=== PATIENT | male | born 1945 | race Caucasian/White ===

== ENCOUNTER 2019-08-27 09:25 | Inpatient (IN) ==
[2019-08-27 10:10] LABS: EOS# 0.12 X1000 (0.0-0.7); EOS% 3.8 % (0.0-10.0); HEMOGLOBIN 11.5 g/dL (14.0-18.0); LYMPH# 0.22 X1000 (1.2-3.4); LYMPH% 6.9 % (20.5-51.1); MCH 28.4 PG (27-31); MCHC 31.1 g/dL (33-37); MCV 91.4 FL (81-99); MONO# 0.18 X1000 (0.11-0.59); MONO% 5.6 % (1.7-9.3); MPV 10.9 FL (7.4-10.4); NEUT# 2.68 X1000 (1.4-6.5); NEUT% 83.7 % (42.2-75.2); PLT 191 X1000 (130-400); RBC 4.05 XMIL (4.7-6.1); RDW 14.3 % (11.5-14.5)
--- NOTE | 2019-08-27 10:11 | Diag Imaging Result Doc PS360 ---
EXAM: CHEST-1 VIEW 08/27/2019 HISTORY: Positive sepsis screen TECHNIQUE: Sitting upright AP chest COMMENT: There is diffuse alveolar and interstitial opacity in the lingula and left lower lobe which were not present on 01/29/2019. There is chronic opacity apparently in the right midlung field which is possibly slightly less dense than on the previous study. IMPRESSION: Left lower lobe and lingular pneumonia. Electronically signed by Marlo Jay 08/27/2019 10:08 AM
[2019-08-27 10:24] LABS: INR 1.25; PROTIME 15.9 Seconds (11.0-16.0)
[2019-08-27 10:25] LABS: PTT 30.1 Seconds (22.3-41.8)
[2019-08-27 10:28] LABS: AGAP 9; ALB/GLOB RATIO 1.1; ALBUMIN 3.2 g/dL (3.5-5.0); ALKALINE PHOSPHATASE 74 U/L (32-122); BUN 15 mg/dL (8-22); CALCIUM 8.6 mg/dL (8.8-10.2); CHLORIDE 92 mmol/L (98-107); CK PROFILE 21 U/L (24-204); COSMO 278; CREATININE 0.5 mg/dL (0.7-1.2); ESTIMATED GFR > 60; GLUCOSE 120 mg/dL (70-104); GOT 24 U/L (10-34); GPT 39 U/L (10-44); POTASSIUM 3.2 mmol/L (3.5-5.1); SODIUM 138 mmol/L (136-145); TCO2 37 mmol/L (25-35); TOTAL BILIRUBIN 1.07 mg/dL (0.20-1.00)
[2019-08-27 10:40] LABS: URINE SOURCE CLEAN CATCH
[2019-08-27 10:45] LABS: BILIRUBIN URINE NEGATIVE (NEGATIVE); BLOOD URINE NEGATIVE (NEGATIVE); COLOR YELLOW; GLUCOSE URINE NEGATIVE (NEGATIVE); KETONE URINE NEGATIVE (NEGATIVE); LEUKOCYTES URINE NEGATIVE (NEGATIVE); NITRITE URINE NEGATIVE (NEGATIVE); PH URINE 7.5; PROTEIN URINE TRACE mg/dL (NEGATIVE); SP GRAVITY URINE 1.015; TURBIDITY URINE CLEAR (CLEAR); UROBILINOGEN URINE NORMAL (NORMAL)
[2019-08-27 10:46] LABS: UR EPITHELIAL CELLS <10 /HPF (<10); URINE BACTERIA NEGATIVE /HPF; URINE RBC <10 /HPF (<10); URINE WBC <10 /HPF (<10)
[2019-08-27] MEDS ORDERED: DUONEB (A & A) INH ONE (11:08)
[2019-08-27] MEDS ORDERED: SOLU-MEDROL IV ONE (11:08)
[2019-08-27] MEDS ORDERED: VANCOMYCIN 1 GM/NS 1 GM/250 ML IVPB IV ONE (11:08)
[2019-08-27] MEDS ORDERED: LEVAQUIN 750 MG/D5W 750 MG/150 ML IVPB IV ONE (11:08)
[2019-08-27] MEDS ORDERED: NS 1,000 ML IV ONE ×2 (11:08→15:06)
--- NOTE | 2019-08-27 11:38 | PROVIDER DOCUMENTATION ---
This chart was entered by eDna Lazaro Scribe, acting as scribe for Art Colbert MD. HPI-Respiratory General - General Chief Complaint: SEPSIS ALERT - D Stated Complaint: SOB,WEAKNESS,CANCER PATIENT Time Seen by Provider: 08/27/19 10:57 Source: patient Allergies/Adverse Reactions: Patient Allergies Allergy/AdvReac Type Severity Reaction Status Date / Time Penicillins Allergy RASH Verified 12/31/18 07:09 - History of Present Illness-Resp Nature of Presenting Problem: 74yom presents to ED cc increased SOB, fatigue, cough w/green mucous and decreased appetite since August 19. Pt reprots he is a pt of Dr. Mauricio and on radiation for lung cancer with last treatment being 1wk ago. Pt does have home o2 of 2lts PRN but has had to use it consistently today. Pt also has home nebulizer treatments which he uses PRN. Pt denies F/C/V/N/D. Quality of Pain: reports: tightness Severity in ED: reports: moderate, severe Onset/Duration: reports: other (9days) Timing: reports: still present, getting worse Cough Quality/Degree: reports: moderate, productive cough, sputum (green) Current Respiratory Medication Therapy: Initiated see nurses note Modifying Factors: worse with: exertion, coughing Associated Symptoms: reports: cough, shortness of breath, short of breath Similar Symptoms Previously?: Yes Recently seen or treated by another doctor?: Yes Review of Systems - Adult - REVIEW OF SYSTEMS - ADULT Constitutional: reports: see HPI, fatique. denies: chills, fever Eyes: reports: no symptoms reported Ears, Nose, Mouth & Throat: reports: no symptoms reported Cardiovascular: reports: no symptoms reported Respiratory: reports: see HPI, cough, excessive sputum production (green), shortness of breath Gastrointestinal: reports: see HPI, poor appetite. denies: diarrhea, nausea, vomiting Genitourinary: reports: no symptoms reported Musculoskeletal: reports: no symptoms reported Integumentary: reports: no symptoms reported Neurological: reports: no symptoms reported Psychiatric: reports: no symptoms reported Endocrine: reports: no symptoms reported Hematologic/Lymphatic: reports: no symptoms reported Allergic/Immunologic: reports: no symptoms reported All Other Systems: Reviewed and Negative Past History - Adult - PAST MEDICAL HISTORY-ADULT Review of Records: reports: Nursing Assessment Review, Medications Reviewed, Social history reviewed & non-contributory. Major Childhood Illnesses: reports: denies history Cardiovascular: reports: denies history Respiratory: reports: denies history Gastrointestinal: reports: denies history Obstetrical/Gynecological: reports: denies history Genitourinary: reports: denies history Musculoskeletal: reports: denies history Neurological: reports: denies history Endocrine/Immune: reports: denies history Other Conditions: reports: denies history - IMMUNIZATION STATUS Childhood Immunizations: See Nurse Assessment Flu Vaccine: See Nurse Assessment - FAMILY HISTORY Family History: reviewed, not pertinent Physical Exam-General - PHYSICAL EXAM-ADULT Initial Vital Signs Reviewed: Yes - CONSTITUTIONAL General Appearance: alert. negative: appears well, anxious, combative - EYES Eyes: pink conjunctivae, other (cataract of left eye) - HEAD, EARS, NOSE, MOUTH & THROAT HENMT: normocephalic/atraumatic, dental decay. negative: moist mucous membranes (dry), angioedema - RESPIRATORY Respiratory: chest non-tender, normal breath sounds, rhonchi (all 4 lobes with left upper worse), other (tachypneic) - CARDIOVASCULAR Cardiovascular: normal peripheral pulses, no murmur, tachycardia. negative: bradycardia - GASTROINTESTINAL (ABDOMEN) Abdominal Exam: normal bowel sounds, non tender, distended. negative: rigid - SKIN Integumentary: normal color. negative: diaphoresis, jaundice - PSYCHIATRIC Psych/Mental Status: normal mood/affect, oriented x 3. negative: anxious, dish eveled Progress - PLAN OF CARE/RESULTS Progress/Plan/Lab Results: Vital Signs - 8 hr 08/27/19 09:36 Temperature 98.0 F Pulse Rate 112 H Respiratory Rate 28 H Blood Pressure 138/68 O2 Sat by Pulse Oximetry 87 L Laboratory Results - last 24 hr 08/27/19 08/27/19 08/27/19 09:50 09:50 09:50 WBC 3.20 L RBC 4.05 L Hgb 11.5 L Hct 37.0 L MCV 91.4 MCH 28.4 MCHC 31.1 L RDW Std Deviation 14.3 Plt Count 191 MPV 10.9 H Immature Gran % (Auto) 0.0 Neut % (Auto) 83.7 H Lymph % (Auto) 6.[address] [place] % (Auto) 5.6 Eos % (Auto) 3.8 Baso % (Auto) 0.0 Immature Gran # (Auto) 0.00 Neut # (Auto) 2.68 Lymph # (Auto) 0.[address] [place] # (Auto) 0.18 Eos # (Auto) 0.12 Baso # (Auto) 0.00 PT 15.9 INR 1.25 PTT (Actin FS) 30.1 Sodium 138 Potassium 3.2 L Chloride 92 L Carbon Dioxide 37 H Anion Gap 9 BUN 15 Creatinine 0.5 L Estimated GFR/1.73 m2 > 60 BUN/Creatinine Ratio 30 Glucose 120 H Calculated Osmolality 278 Calcium 8.6 L Total Bilirubin 1.07 H AST 24 ALT 39 Alkaline Phosphatase 74 Creatine Kinase 21 L Troponin T High Sens Total Protein 6.0 L Albumin 3.2 L Globulin 2.8 Albumin/Globulin Ratio 1.1 Plasma Lactate Urine Source Urine Color Urine Turbidity Urine pH Ur Specific [place] Urine Protein Ur Glucose (Stick) Ur Ketones (Stick) Urine Blood Urine Nitrite Urine Bilirubin Urobilinogen Dipstick Urine Leukocytes Urine WBC (Auto) Urine RBC (Auto) U Epithel Cells (Auto) Urine Bacteria (Auto) 08/27/19 08/27/19 08/27/19 09:50 09:50 10:32 WBC RBC Hgb Hct MCV MCH MCHC RDW Std Deviation Plt Count MPV Immature Gran % (Auto) Neut % (Auto) Lymph % (Auto) [place] % (Auto) Eos % (Auto) Baso % (Auto) Immature Gran # (Auto) Neut # (Auto) Lymph # (Auto) [place] # (Auto) Eos # (Auto) Baso # (Auto) PT INR PTT (Actin FS) Sodium Potassium Chloride Carbon Dioxide Anion Gap BUN Creatinine Estimated GFR/1.73 m2 BUN/Creatinine Ratio Glucose Calculated Osmolality Calcium Total Bilirubin AST ALT Alkaline Phosphatase Creatine Kinase Troponin T High Sens 10 Total Protein Albumin Globulin Albumin/Globulin Ratio Plasma Lactate 2.5 H Urine Source CLEAN CATCH Urine Color YELLOW Urine Turbidity CLEAR Urine pH 7.5 Ur Specific [place] 1.015 Urine Protein TRACE A Ur Glucose (Stick) NEGATIVE Ur Ketones (Stick) NEGATIVE Urine Blood NEGATIVE Urine Nitrite NEGATIVE Urine Bilirubin NEGATIVE Urobilinogen Dipstick NORMAL Urine Leukocytes NEGATIVE Urine WBC (Auto) <10 Urine RBC (Auto) <10 U Epithel Cells (Auto) <10 Urine Bacteria (Auto) NEGATIVE Orders Category Date Time Status Cardiac Monitoring DIRECTED Care 08/27/19 09:41 Active IV Insertion ORDERED Care 08/27/19 09:41 Active Notify MD of + Sepsis Screen NOW Care 08/27/19 09:41 Active Notify Physician As Ordered Care 08/27/19 09:41 Active CHEST-1 VIEW [RAD] Stat Exams 08/27/19 09:41 Completed BLOOD CULTURE [BLDCUL] Stat Lab 08/27/19 09:41 Uncollected CBC WITH DIFF [HEME] Stat Lab 08/27/19 09:50 Completed CK PROFILE [SP CHEM] Stat Lab 08/27/19 09:50 Completed COMPREHENSIVE METABOLIC PANEL [CHEM] Stat Lab 08/27/19 09:50 Completed INFLUENZA SCREEN A/B Stat Lab 08/27/19 11:12 Uncollected LACTATE, PLASMA [CHEM] Q3H Lab 08/27/19 09:50 Completed LACTATE, PLASMA [CHEM] Q3H Lab 08/27/19 12:45 Uncollected LACTATE, PLASMA [CHEM] Q3H Lab 08/27/19 15:45 Uncollected MAGNESIUM [CHEM] Stat Lab 08/27/19 09:50 Received PROTIME WITH INR [COAG] Stat Lab 08/27/19 09:50 Completed PTT [COAG] Stat Lab 08/27/19 09:50 Completed SPUTUM CULTURE WITH GRAM STAIN [RM] Stat Lab 08/27/19 11:12 Uncollected TROPONIN T HIGH SENSITIVITY Stat Lab 08/27/19 09:50 Completed URINALYSIS W/POSS RFLX CULT [URINALYSIS] Stat Lab 08/27/19 10:32 Completed 0.9% Sodium Chloride Inj [Ns] 1,000 ml Med 08/27/19 11:08 Active IV 999 mls/hr Albuterol 2.5MG/Ipratrop 0.5MG [Duoneb (A & A)] Med 08/27/19 11:08 Discontinued 9 ml INH NOW ONE Levofloxacin 750 mg/D5w [Levaquin 750 mg/D5w] Med 08/27/19 11:08 Active 750 mg in 150 ml IV NOW Methylprednisolone Sod Succ [Solu-Medrol] Med 08/27/19 11:08 Discontinued 125 mg IV NOW ONE Vancomycin 1 gm/Ns Med 08/27/19 11:08 Active 1 gm in 250 ml IV NOW Aerosol Treatments Routine Oth 08/27/19 11:09 Active Aerosol Treatments Stat Oth 08/27/19 11:09 Active Oxygen Device Stat Oth 08/27/19 09:41 Active Result Diagrams: 08/27/19 09:50 08/27/19 09:50 - REASSESSMENT Reassessment #1 Time Reassessed: 11:34 Status: improving (Patient has severe sepsis, but not septic shock. Lactate is 2.5, 4 SIRS criteria and pneumonia. Levaquin/Vanco ordered and IVF bolus as soon as patient seen by me. Needs admission. Does not need full 30ml/kg bolus as not in septic shock.) - XRAY 1 XRAY: Bilateral XRAY Study: Chest Impression: See EMR Report (IMPRESSION: Left lower lobe and lingular pneumonia. Electronically signed by Marlo Jay 08/27/2019 10:08 AM) - CONSULTS/PCP/HOSPITALIST Notification #1 *Consult/PCP/Hospitalist*: [email or web address]/[email or web address] Time Discussed: 11:19 Consult Disposition: Admit (accepted pt to Dr. Lopez) Departure - Departure Date of Disposition Decision: 08/27/19 Time of Disposition Decision: 11:18 DIAGNOSIS: Severe sepsis with acute organ dysfunction, History of lung cancer, Hypoxemia Pneumonia Qualifiers: Pneumonia type: due to unspecified organism Laterality: right Lung location: upper lobe of lung Qualified Code(s): J18.1 - Lobar pneumonia, unspecified organism Disposition: ADMITTED INPATIENT 09 Certified Medical Emergency: Emergent Condition: Critical Referrals and Follow-Ups: Frances Bull [Primary Care Provider] - - Critical Care Note This patient required my direct & personal management of CC.: Yes Total Time (mins): 40 Critical Care Statement: This patient required my direct personal management to treat or rule out processes, the absence of which, could potentiallly result in sudden, clinically significant life or limb threatening deterioration. Attestation - Physician/ ZEB Attestation Patient care was provided by Advanced Practice Provider:: No The physician spent face to face time with patient:: Yes Advanced Practice Provider documentation review:: Supervising physician onsite and consulted in the evaluation and care of this patient. The physician did have a face to face encounter with the patient. This chart was documented by the indicated scribe, (Dena Lazaro Scribe) and accurately reflects the services I performed and decisions made by me, Art Colbert MD, as attested by the provider's signature.
[2019-08-27] MEDS ORDERED: VANCOMYCIN IV PER PHARMACY MISC SCH (11:45)
[2019-08-27] MEDS: AZACTAM 1 GM in NS 50 ML IV SCH ×2 (12:32→22:16)
[2019-08-27] MEDS ORDERED: VANCOMYCIN 2,000 MG in NS 500 ML IV ONE (13:00)
[2019-08-27] MEDS ORDERED: XOPENEX NEB INH PRN (14:10)
[2019-08-27] MEDS ORDERED: MORPHINE IV ONE (14:11)
[2019-08-27] MEDS ORDERED: NS NEB INH SCH (14:15)
--- NOTE | 2019-08-27 15:39 | Diag Imaging Result Doc PS360 ---
EXAM: KUB ABDOMEN 08/27/2019 HISTORY: SBO TECHNIQUE: KUB COMMENT: The left side of the abdomen is not included on the film. There is colonic and some small bowel gas in a nonspecific pattern. The stomach is not particularly distended. There is no evidence of organomegaly or mass. IMPRESSION: Possible ileus. Electronically signed by Marlo Jay 08/27/2019 3:37 PM
[2019-08-27] MEDS: SOLU-MEDROL IV SCH ×2 (15:48→22:17)
[2019-08-27 16:00] LABS: BASO# 0.01 X1000 (0.0-0.2); BASO% 0.3 % (0.0-0.8); EOS# 0.02 X1000 (0.0-0.7); EOS% 0.6 % (0.0-10.0); HEMATOCRIT 33.7 % (42.0-52.0); HEMOGLOBIN 10.6 g/dL (14.0-18.0); IMM GRAN# 0.02 X1000 (0.0-0.04); IMM GRAN% 0.6 % (0.0-0.5); LYMPH# 0.13 X1000 (1.2-3.4); LYMPH% 4.2 % (20.5-51.1); MCH 28.6 PG (27-31); MCHC 31.5 g/dL (33-37); MCV 91.1 FL (81-99); MONO# 0.12 X1000 (0.11-0.59); MONO% 3.8 % (1.7-9.3); MPV 10.8 FL (7.4-10.4); NEUT# 2.82 X1000 (1.4-6.5); NEUT% 90.5 % (42.2-75.2); PLT 178 X1000 (130-400); RDW 14.3 % (11.5-14.5); WBC 3.12 X1000 (4.8-10.8)
[2019-08-27] MEDS: DUONEB (A & A) INH SCH ×3 (16:21→23:29)
[2019-08-27 17:06] LABS: LYMPHS 7 % (21-51); MONO 2 % (1-9); SEGS 91 % (42-75)
--- NOTE | 2019-08-27 19:10 | ECHO REPORT ---
ORDER DATE: 08/27/2019 INDICATION: Respiratory distress, respiratory failure, hypoxemia. Evaluate ejection fraction. Suspected CHF. SUMMARY OF 2-DIMENSIONAL IMAGIN. The study is very difficult. Left ventricular function appears to be grossly within normal range. 2. The mitral valve appears to be grossly unremarkable. 3. Pulse wave Doppler of mitral inflow shows mild reversal of the E/A ratio. 4. Tissue Doppler of septal and lateral mitral annulus averages 7 cm. 5. Diastolic function is probably normal. 6. The aortic valve looks grossly unremarkable. The LVOT VTI appears to be normal. Cardiac output is probably normal. 7. I do not see any evidence of pericardial effusion. 8. The left atrium does not appear to be dilated. 9. The right-sided chambers are suboptimally visualized. 10.There is no obvious mass in the left ventricle. Clinical correlation recommended. This was a limited echo. cc: Jose Kathleen MD MTDD
--- NOTE | 2019-08-27 19:56 | HISTORY AND PHYSICAL ---
ADDENDUM: HISTORY OF PRESENT ILLNESS: I have seen and examined Mr. Alfredo in the emergency room. He is pending a bed on the medical floor. The was at the bedside at the time of the encounter. Mr. Alfredo refers to have generalized weakness, cough, some shortness of breath for a few days now, which has been progressively getting worse. He came to the emergency room and was evaluated. Imaging studies reveal a left lower lobe pneumonia and he is being admitted for inpatient management. Of note, Mr. 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 He has been having chemotherapy with Dr. Mai and had just started this week with radiation therapy. OBJECTIVE: General: Mr. Alfredo is a 74-year-old, gentleman. He looks underweight, chronically ill. HEENT: Mucosa is pink and moist. Anicteric, acyanotic. Neck: Supple. Chest: Air entry is bilaterally reduced, more so to the right posterior lung field. There are diffuse and inspiratory crackles in both lung mayfield. Cardiovascular: Regular rate and rhythm. Abdomen: Soft and somewhat distended. Bowel sounds present. Central nervous system: Patient is awake, alert, and oriented. LABORATORY AND DIAGNOSTIC DATA: Laboratory data has also been reviewed. The patient has leukopenia. Chemistry for the most part unremarkable, except for mild low potassium. A chest x- ray this morning shows left lower lobe and lingular pneumonia, chronic opacity in the right mid lung which is possibly slightly less dense than previous studies. ASSESSMENT/PLAN: 1. Acute on chronic hypoxemic respiratory failure. Patient has been started back on supplemental oxygen. 2. Sepsis secondary to pneumonia. 3. Left lower lobe and lingula pneumonia in patient who is immunocompromised. He is allergic to penicillin, so he has been started on aztreonam with vancomycin. We will get sputum cultures, blood cultures. We will also get his immunoglobulin levels and go from there. 4. Chronic obstructive pulmonary disease, in exacerbation. 5. Tobacco use and abuse. Patient has been counseled. 6. Recently diagnosed left lung squamous cell cancer. Patient follows up with Dr. Mai. Please refer to the details of the history and physical that has been dictated by the [employer] PRE[employer]ION SPECIALIST in the chart. I have reviewed it and I have also discussed the plan with her. I have discussed my findings and the plan with the patient, as well as the who was at the bedside. cc: Leonard Lim MD
--- NOTE | 2019-08-27 21:34 | HISTORY AND PHYSICAL ---
PRIMARY CARE PROVIDER: Nany Womack. ONCOLOGIST: Dr. Mai. CHIEF COMPLAINT: Shortness of breath, weakness. HISTORY OF PRESENT ILLNESS: Mr. Alfredo is a 74-year-old male with a past medical history of lung cancer. He has been receiving treatments with chemo since last December. His last chemo treatment was on Saturday. He has been getting radiation treatments Saturday through Saturday. His last radiation treatment was yesterday. He reports he has had a productive cough with greenish sputum. He went to see his PCP on Saturday. They did give him a prescription for Levaquin, but he has had continuing worsening of his shortness of breath, so he came to the ED to be evaluated. His initial lactate was positive. He was tachycardic, tachypneic, and hypoxic on arrival. He was initiated on the sepsis protocol and started on broad-spectrum antibiotics with vancomycin and Azactam, bronchodilators, and supplemental O2. We will consult Dr. Mai and continue with further treatment and evaluation. PAST MEDICAL HISTORY: 1. Right lung mass; been on chemotherapy since last December; just started radiation 5 days a week. 2. COPD. 3. Really denies any other past medical history. PAST SURGICAL HISTORY: Right thigh surgery secondary to trauma as a child. SOCIAL HISTORY: He is and lives in [place]. He was a smoker for 59 years, 2 packs per day. He quit smoking 6 years ago. He is on home O2. FAMILY HISTORY: Mother with [place] at the age of 86. Father with lung cancer. Two sisters with diabetes. REVIEW OF SYSTEMS: Twelve-point review of systems completely negative except for those mentioned in HPI. PHYSICAL EXAMINATION: VITAL SIGNS: Temperature 98 degrees, heart rate 112, respirations 28, blood pressure is 138/68. Initial O2 was 87. He is now in 90s on 2 L. GENERAL: Mr. Alfredo is a pleasant 74-year-old male who is sitting up in the bed in no acute distress. HEENT: Atraumatic, normocephalic. PERRL. NECK: Supple. Trachea midline. CARDIOVASCULAR: S1, S2 appreciated. No murmurs, gallops, rubs noted. RESPIRATORY: Lung sounds scattered rhonchi. Did not appreciate any wheezes. GI: Distended, but nontender. Positive bowel sounds 4 quadrants. EXTREMITIES: Lower extremities 1+ edema. There was some erythema. NEUROLOGIC: No focal deficits noted. DIAGNOSTIC DATA: Chest x-ray showed a left lower lobe and lingular pneumonia. Abdominal x-ray: Possible ileus. LABORATORY DATA: White count 3, hemoglobin and hematocrit 10 and 33, platelet count 178,000. Sodium 138, potassium 3.2, BUN 15, creatinine 0.5, blood glucose is 120, magnesium 1.9, total bilirubin 1.07, AST 24, ALT 39, alkaline phosphatase 74. ProBNP is 227. Initial plasma lactate was 2.5. Repeat is 2.1. Urinalysis is negative. ASSESSMENT AND PLAN: 1. Left lower lobe and lingular pneumonia. The patient ruled in for sepsis. We will continue broad-spectrum antibiotics with vancomycin and Azactam. He has an allergy to penicillin. Supplemental oxygen, bronchodilators, and aggressive pulmonary toilet. 2. Sepsis rule in. Patient was given intravenous fluids per protocol. Continue to trend his lactate. 3. Possible ileus. We will hold him n.p.o. for now. His abdomen was distended; however, he does report having a good bowel movement yesterday. He did have bowel sounds. 4. Bilateral lower extremity edema. His proBNP is normal at 8. We are checking an echocardiogram. We can continue his home Lasix. Will keep his feet elevated. 5. Lung cancer. The patient is currently receiving chemotherapy and radiation, followed by Dr. Mai. We placed a consult. We will continue him on his home MS Contin. 6. Chronic obstructive pulmonary disease. We will continue on bronchodilators, supplemental oxygen, intravenous steroids. Dictated by PANDA Real for Leonard Lim MD cc: MD Solitario Williamson MD Gini M. Montgomery
[2019-08-27] MEDS: MS CONTIN PO SCH (22:17)
[2019-08-27] MEDS: MIRALAX PO SCH (22:17)
[2019-08-27] MEDS: NS 1,000 ML IV SCH (22:17)
[2019-08-27] MEDS: XOPENEX NEB INH SCH (23:25)
[2019-08-28] MEDS: SOLU-MEDROL IV SCH ×4 (03:12→23:39)
[2019-08-28] MEDS ORDERED: NORCO-10 PO ONE (04:02)
[2019-08-28] MEDS: NS 1,000 ML IV SCH (04:04)
[2019-08-28] MEDS: AZACTAM 1 GM in NS 50 ML IV SCH ×3 (04:09→21:18)
[2019-08-28] MEDS: DUONEB (A & A) INH SCH ×6 (05:46→22:37)
[2019-08-28] MEDS: VANCOMYCIN 1,600 MG in NS 250 ML IV SCH (06:47)
--- NOTE | 2019-08-28 07:21 | Diag Imaging Result Doc PS360 ---
EXAM: CHEST-PORTABLE 08/28/2019 HISTORY: Pneumonia TECHNIQUE: AP portable at 0605 COMMENT: The inspiration is slightly less optimal than on 08/27/2019. The patient is rotated slightly to the right. There continues to be dense opacification in the left lower lobe. There are postsurgical deformities in the right chest wall and some ill-defined opacities present in the mid and lower lung field on the right. IMPRESSION: Left lower lobe pneumonia. Electronically signed by Marlo Jay 08/28/2019 7:18 AM
[2019-08-28] MEDS: XOPENEX NEB INH SCH (08:42)
[2019-08-28] MEDS: MIRALAX PO SCH (09:52)
[2019-08-28] MEDS: MS CONTIN PO SCH ×2 (09:52→21:18)
[2019-08-28] MEDS: TYLENOL PO PRN (14:49)
--- NOTE | 2019-08-28 16:03 | PROGRESS NOTE ---
DATE: 08/28/2019 SUBJECTIVE: This morning Mr. Alfredo refers to be doing a little better. Shortness of breath has improved some. OBJECTIVELY: Blood pressure is 132/56, pulse of 87, respiration is 18, temperature 97.8 degrees. The patient is saturating 93% on 3 L.General: On general exam, Mr. Alfredo is a 74-year-old, gentleman. He is in bed, in no distress. HEENT: Mucosa is pink and moist. Anicteric. Acyanotic. Neck: Supple. Respiratory: Air entry is bilaterally reduced, more so to the right posterior lung field. There are some crackles posteriorly in both lung mayfield. Cardiovascular: Regular rate and rhythm. GI: Abdomen is soft, is distended. Bowel sounds slightly hypoactive. Extremities: No pedal edema. DEPARTMENT CHAIRPERSON: Patient is awake, alert, oriented. LABORATORY DATA: None for this morning. A KUB yesterday showed possible ileus. A chest x-ray this morning shows left lower lobe pneumonia. ASSESSMENT: 1. Acute on chronic hypoxemic respiratory failure. Patient continues to be on supplemental oxygen. 2. Sepsis secondary to pneumonia. 3. Left lower lobe and lingular pneumonia. The patient is on aztreonam and vancomycin. Cultures are pending. 4. COPD, in mild exacerbation. 5. Tobacco use and abuse. Patient has been counseled. 6. Recently diagnosed right upper lobe squamous cell carcinoma with infiltration to the skin. Patient follows up with Dr. Mai. 7. Ileus with constipation. We will continue to address this with bowel regimen. 8. Generalized weakness and deconditioning. Physical therapy has been consulted and will start the patient also on diet supplements. cc: Leonard Lim MD
--- NOTE | 2019-08-28 16:06 | Diag Imaging Result Doc PS360 ---
EXAM: CT THORAX/ABDOMEN W/CONTRAST INDICATION: R/o progression of cancer TECHNIQUE: This exam was performed using automated exposure control, adjustment of mA or kV according to patient size, and/or use of iterative reconstruction technique. COMPARISON: 07/28/2019 FINDINGS: CHEST: There is pulmonary emphysema with an apical predominance. There is a known right middle lobe lung mass that is invading and extending through the anterior chest wall. The intrathoracic portion of the mass is approximately stable. However, the extrathoracic portion of the mass has increased in size. For reference, one of the extrathoracic extensions of the mass on image 59 of series 7 measures up to 5.4 x 5.2 cm axially (4.7 x 3.5 cm previously, remeasured). There is also a chest wall mass anteriorly on 83 of series 7 measuring 5.2 x 4.1 cm axially (4.4 x 3.7 cm previously, remeasured). There has been interval development of a dense airspace consolidation involving the left lower lobe indicating pneumonia. There is milder consolidation at the right lung base as well. There is also a component of atelectasis at both lung bases. Rib erosion on the right related to the mass is again noted. ABDOMEN: The gallbladder is partially contracted and is unremarkable, otherwise. The liver is unremarkable with no sign of metastatic disease. The spleen, pancreas, and adrenal glands are grossly unremarkable. There is bilateral renal cortical scarring, more prominent at the inferior right kidney. There is an extrarenal pelvis on the right that is more distended than the previous study. It is unclear if this is due to a distal obstruction out of the [id number] or simply due to increased urine output as compared to the previous study. The distal ureter is out of the [id number]. Please correlate clinically. There is extensive uncomplicated colonic diverticulosis. There are nonspecific fluid and gas-filled loops of small bowel with only mild distention likely representing mild ileus there is nothing specific for obstruction. Otherwise, the visualized abdominal segments of the GI tract are grossly unremarkable. IMPRESSION: 1.Known right middle lobe lung mass invading the anterior right chest wall. The extrathoracic components of the mass have increased in size during the interval. 2.Interval development of pneumonia at both lower lobes, much more prominent on the left. 3.Dilated extrarenal pelvis on the right that is more prominent than the previous study. Please see above discussion. 4.Several gas and fluid-filled loops of small bowel in the upper abdomen with mild distention that are nonspecific but probably represent mild ileus. 5.Otherwise, the abdomen is essentially stable. Electronically signed by Esau Mitchell 08/28/2019 4:04 PM
[2019-08-28] MEDS: NORCO-10 PO PRN (18:42)
[2019-08-28] MEDS ORDERED: MS CONTIN PO SCH (21:00)
[2019-08-29] MEDS: VANCOMYCIN 1,600 MG in NS 250 ML IV SCH (00:15)
[2019-08-29] MEDS: DUONEB (A & A) INH SCH ×6 (03:22→22:46)
[2019-08-29] MEDS: AZACTAM 1 GM in NS 50 ML IV SCH ×3 (04:30→21:00)
[2019-08-29 07:54] LABS: BASO# 0.01 X1000 (0.0-0.2); BASO% 0.4 % (0.0-0.8); EOS# 0.01 X1000 (0.0-0.7); EOS% 0.4 % (0.0-10.0); HEMATOCRIT 34.2 % (42.0-52.0); HEMOGLOBIN 10.2 g/dL (14.0-18.0); IMM GRAN# 0.02 X1000 (0.0-0.04); IMM GRAN% 0.8 % (0.0-0.5); LYMPH# 0.22 X1000 (1.2-3.4); LYMPH% 8.5 % (20.5-51.1); MCH 28.9 PG (27-31); MCHC 29.8 g/dL (33-37); MCV 96.9 FL (81-99); MONO# 0.33 X1000 (0.11-0.59); MONO% 12.7 % (1.7-9.3); MPV 10.8 FL (7.4-10.4); NEUT# 2.01 X1000 (1.4-6.5); NEUT% 77.2 % (42.2-75.2); PLT 208 X1000 (130-400); RBC 3.53 XMIL (4.7-6.1); RDW 14.6 % (11.5-14.5)
[2019-08-29] MEDS: SOLU-MEDROL IV SCH ×3 (08:08→22:32)
[2019-08-29] MEDS: MIRALAX PO SCH (08:08)
[2019-08-29] MEDS: MS CONTIN PO SCH ×2 (08:09→21:04)
[2019-08-29 08:36] LABS: AGAP 7; ALB/GLOB RATIO 0.9; ALBUMIN 2.8 g/dL (3.5-5.0); ALKALINE PHOSPHATASE 55 U/L (32-122); BUN 19 mg/dL (8-22); CALCIUM 8.2 mg/dL (8.8-10.2); CHLORIDE 102 mmol/L (98-107); COSMO 289; CREATININE 0.4 mg/dL (0.7-1.2); ESTIMATED GFR > 60; GLUCOSE 126 mg/dL (70-104); GOT 12 U/L (10-34); GPT 27 U/L (10-44); POTASSIUM 4.1 mmol/L (3.5-5.1); SODIUM 143 mmol/L (136-145); TCO2 34 mmol/L (25-35); TOTAL BILIRUBIN 0.33 mg/dL (0.20-1.00); TOTAL PROTEIN 5.9 g/dL (6.3-8.3)
[2019-08-29] MEDS: NORCO-10 PO PRN ×4 (09:11→23:09)
[2019-08-29] MEDS ORDERED: FLEET ENEMA PR ONE (11:49)
--- NOTE | 2019-08-29 11:49 | Diag Imaging Result Doc PS360 ---
EXAM: CT PELVIS W/O CONTRAST INDICATION: right hydroureteronephrosis TECHNIQUE: This exam was performed using automated exposure control, adjustment of mA or kV according to patient size, and/or use of iterative reconstruction technique. COMPARISON: CT of the abdomen dated 08/28/2019. No prior CT of the pelvis is available for comparison. FINDINGS: There is contrast media in the urinary bladder from the CT of the chest and abdomen performed yesterday. The urinary bladder is markedly distended. No bladder wall thickening or bladder mass can be identified. The prostate is mildly enlarged measuring up to 5.2 cm in diameter. There are prostatic calcifications. The distal right ureter is mildly prominent. Note that the right renal pelvis was prominent on yesterday's study. The distal left ureter is unremarkable. There is extensive sigmoid colonic diverticulosis but no evidence of diverticulitis. The appendix is normal. No bowel wall thickening is identified. No focal inflammatory changes or free abdominal gas is appreciated in the pelvis. There is no evidence of pelvic lymphadenopathy. There are degenerative changes involving the lower lumbar spine. IMPRESSION: 1.Significantly distended urinary bladder and mildly prominent distal right ureter. 2.Mildly prominent prostate. 3.Uncomplicated diverticulosis coli. Electronically signed by Esau Mitchell 08/29/2019 11:46 AM
[2019-08-29] MEDS: MILK OF MAGNESIA PO SCH ×2 (12:21→21:07)
[2019-08-29] MEDS: TYLENOL PO PRN (14:34)
--- NOTE | 2019-08-29 14:48 | PROGRESS NOTE ---
DATE: 08/29/2019 SUBJECTIVE: This morning Mr. Alfredo refers to be doing a lot better from respiration standpoint, but he said he has some abdominal discomfort, especially in the lower abdomen. OBJECTIVE: Vital signs: Blood pressure is 131/58, pulse of 60, respirations 18, temperature is 97.8 degrees. General: Mr. Alfredo is a 74-year-old elderly gentleman. He is in bed no distress. HEENT: Mucosa is pink and moist. Anicteric. Acyanotic. Neck: Supple. Chest: Good air entry bilateral. There is a few crackles in the posterior lung [place]. Cardiovascular: Regular rate and rhythm. No murmurs, no rubs, no gallops. GI: Abdomen soft, distended, mildly tender in the lower abdomen but no guarding and no rebound. Bowel sounds are present but remarkably hypoactive. Extremities: No pedal edema. STOCK FEEDER: Patient is awake, alert, and follows commands. LABORATORY DATA: WBC [place] 2.6[place] [address].0, platelet count of 208,000. Chemistry is also reviewed, is unremarkable. DIAGNOSTIC STUDIES: 1. A CT scan of the abdomen and pelvis yesterday showed known right middle lobe lung mass invading the anterior chest wall. There is also interval development of pneumonia both lower bases. There was a dilated extrarenal pelvis in the right but several gas and fluid-filled loops of small bowel. 2. Pelvis scan this morning seems to show that the patient has a dilated bladder and continues to be remarkably stool impacted. 3. We are still waiting on the official report on that. 4. The patient's blood cultures have been 48 hours negative. ASSESSMENT: 1. Acute on chronic hypoxemic respiratory failure. Patient continues to be on supplemental oxygen. 2. Sepsis on presentation secondary to pneumonia improved. 3. Multifocal bilateral lower lobe pneumonias, the left more than right. Patient is on aztreonam and vancomycin. He seems to be clinically getting better. 4. Chronic obstructive pulmonary disease in exacerbation. We will continue with standard of care. 5. Tobacco use and abuse patient has been counseled. 6. 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 7. Constipation with impaction. We will continue addressing this with bowel regimen. Patient will get will get a Fleet enema today. 8. Urinary retention. A CT scan shows a dilated bladder. We are going to get a Campbell catheter. There is also mention of a right hydroureter. Urology has been consulted. We will sample the urine once the catheter is inserted. cc: Leonard Lim MD
[2019-08-29] MEDS ORDERED: VANCOMYCIN 1,600 MG in NS 250 ML IV SCH (21:00)
[2019-08-29] MEDS: FLOMAX PO SCH (21:06)
--- NOTE | 2019-08-30 00:13 | CONSULTATION ---
DATE OF CONSULTATION: 08/29/2019 CONSULTING PHYSICIAN: Dr. Lim with Hospitalist Service. REASON FOR CONSULTATION: Right hydronephrosis. HISTORY OF PRESENT ILLNESS: A 74-year-old male with a significant history of advanced lung cancer, who has been getting chemotherapy and radiation. He presented with shortness of breath and weakness on 08/27/2019, and was admitted. In the process, he had CT of chest and abdomen on 08/28/2018, which showed right hydronephrosis with dilated ureter that was limited by not having the CT scan performed to the level of the pelvis. The patient states he has intermittent right flank pain. He states that prior to hospitalization, his stream was somewhat weak. He had hesitancy. He had nocturia x3. He denies dysuria, gross hematuria, history of urinary tract infections. He reports he has never had a prostate exam. He thinks Dr. Bull, his family doctor, follows his PSAs. He had a CT of pelvis without contrast on 08/29/2019, ordered by me, which revealed dilated ureter to the level of the bladder and significantly distended urinary bladder as well as enlarged prostate. PAST MEDICAL HISTORY: Lung cancer, COPD. PAST SURGICAL HISTORY: Thigh surgery. ALLERGIES: Penicillins. HOME MEDICATIONS: Dexamethasone, eszopiclone, Levaquin, MS Contin, [place] 10, furosemide. SOCIAL HISTORY: He had smoked for almost 60 years, 2 packs a day. Quit smoking 6 years ago. He has home oxygen. FAMILY HISTORY: Negative for malignancies. REVIEW OF SYSTEMS: Reviewed and 12 systems negative, except for the HPI. PHYSICAL EXAMINATION: Temperature 97.8 degrees, P 68, BP 131/58.General: No acute distress. Cachectic-appearing male. HEENT: Normocephalic, atraumatic. Cardiovascular: Regular rhythm. Pulmonary: Bilateral breath sounds. Abdomen: Soft, nontender, nondistended. Back: Mild right CVA tenderness, no left CVA tenderness. No hepatosplenomegaly noted. Active bowel sounds present. Genitourinary: Normal external male genitalia. Meatus is patent. Testes are descended bilaterally, atrophic, but appropriate for age. No masses palpable. Scrotal skin is without lesions. Perineum has intact structural integrity. No lesions or fluctuance noted. Digital examination revealed approximately 40.5 g gland without evidence of nodules. It was smooth and symmetric. Extremities: No clubbing, cyanosis, or edema. Psychiatric: Appropriate mood and affect. Neurologic: Alert and oriented x3. PERTINENT LABORATORY DATA: White cell count is 3000, hematocrit is 34. Creatinine is 0.4. PERTINENT IMAGES: CT of pelvis on 08/29/2019, revealing a very distended urinary bladder and hydroureteronephrosis to the level of the bladder. He had fairly enlarged prostate. ASSESSMENT: A 74-year-old male with advanced lung cancer, who had incidental finding of a right hydroureteronephrosis to the level of bladder and very distended bladder. Hospitalist colleagues have already ordered Campbell catheter be placed. I have discussed with the patient, he likely has significant prostatic hypertrophy which has put him into retention. We discussed Flomax versus GreenLight transurethral vaporization of the prostate. We agreed to try Flomax first. Side effects were explained. We discussed his Campbell catheter should be able to come out in 2 days. PLAN: 1. Agree with Campbell catheter insertion. 2. Flomax 0.4 mg bid. 3. Recommend removing Campbell catheter at the earliest on 09/01/2019, and see how he voids. 4. Thank you for the consultation. cc: Alcon Randall MD MTDJennie
[2019-08-30] MEDS: DUONEB (A & A) INH PRN ×2 (02:21→02:38)
[2019-08-30] MEDS: DUONEB (A & A) INH SCH ×3 (02:22→07:14)
[2019-08-30] MEDS: AZACTAM 1 GM in NS 50 ML IV SCH (04:40)
[2019-08-30] MEDS: NORCO-10 PO PRN (05:24)
[2019-08-30 07:36] LABS: HEMATOCRIT 33.6 % (42.0-52.0); HEMOGLOBIN 9.9 g/dL (14.0-18.0); MCH 28.5 PG (27-31); MCHC 29.5 g/dL (33-37); MCV 96.8 FL (81-99); MPV 10.9 FL (7.4-10.4); RBC 3.47 XMIL (4.7-6.1); RDW 14.1 % (11.5-14.5); WBC 2.28 X1000 (4.8-10.8)
[2019-08-30 08:06] LABS: AGAP 4; ALBUMIN 2.7 g/dL (3.5-5.0); ALKALINE PHOSPHATASE 49 U/L (32-122); BUN 18 mg/dL (8-22); CALCIUM 8.6 mg/dL (8.8-10.2); CHLORIDE 99 mmol/L (98-107); COSMO 281; CREATININE 0.4 mg/dL (0.7-1.2); ESTIMATED GFR > 60; GLUCOSE 123 mg/dL (70-104); GOT 10 U/L (10-34); GPT 25 U/L (10-44); MAGNESIUM 2.8 mg/dL (1.5-2.7); POTASSIUM 4.3 mmol/L (3.5-5.1); SODIUM 139 mmol/L (136-145); TCO2 36 mmol/L (25-35); TOTAL BILIRUBIN 0.35 mg/dL (0.20-1.00); TOTAL PROTEIN 5.4 g/dL (6.3-8.3)
[2019-08-30 08:11] VITALS: BP 127/61
[2019-08-30] MEDS: MS CONTIN PO SCH (09:13)
[2019-08-30] MEDS: FLOMAX PO SCH (09:13)
[2019-08-30] MEDS: MIRALAX PO SCH (09:14)
[2019-08-30] MEDS: SOLU-MEDROL IV SCH (09:14)
[2019-08-30] MEDS: MILK OF MAGNESIA PO SCH (09:14)
--- NOTE | 2019-08-30 20:54 | DISCHARGE SUMMARY ---
ADMISSION DATE: 08/27/2019 DISCHARGE DATE: 08/30/2019 DISPOSITION: Home. FOLLOW-UP: Dr. Frances Bull. Dr. Mai. Dr. Randall. CONSULTATION DURING THIS ADMISSION: Urology was consulted. Patient was seen by Dr. Randall. INVASIVE PROCEDURES DONE DURING THIS ADMISSION: 1. None. IMAGING STUDIES OF SIGNIFICANCE: 1. Chest x-ray did show a left lower lobe and lingular pneumonia. 2. Abdomen KUB showed possible ileus. 3. A repeat chest x-ray continued to show a left lower lobe pneumonia. 4. A CT scan of the chest and abdomen showed known right middle lobe mass, interval development of pneumonia in both lungs, dilated extrarenal pelvis. Several gas filled loops of small bowel. The pelvic CT scan show significantly distended urinary bladder, mildly prominent prostate, uncomplicated diverticulosis. ADMISSION DIAGNOSIS: 1. Acute on chronic hypoxemic respiratory failure. 2. Sepsis. 3. Left lower lobe and lingular pneumonia. 4. COPD in exacerbation. 5. Tobacco use and abuse. 6. Recent diagnosis of left lung squamous cell cancer. DISCHARGE DIAGNOSIS: 1. Acute on chronic hypoxemic respiratory failure. Patient continues to be on supplemental oxygen. 2. Sepsis on presentation secondary to pneumonia. 3. Multifocal bilateral lower lobes pneumonia, left more than the right. The patient was on aztreonam and vancomycin. Seems to be clinically getting better. This has been transitioned to Levaquin and doxycycline for outpatient management. 4. COPD with bronchospasms. The patient was treated for possible exacerbation as well. 5. Tobacco use and abuse. 6. 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 7. Constipation with fecal impaction and improved with bowel regimen. 8. Urinary retention. This has been overcome with Campbell catheter placement. Urology was consulted. DISCHARGE MEDICATIONS: 1. Dexamethasone 4 mg b.i.d. 2. Morphine 50 mg b.i.d. 3. [place] 10 mg p.o. q. 4 to 6 hours p.r.n. 4. Ibuprofen 600 mg p.o. q. 6 h. p.r.n. 5. Anoro inhaler. 6. Doxycycline 100 mg b.i.d. 7. Tamsulosin 0.4 b.i.d. 8. Milk of magnesia 30 mL b.i.d. 9. Movantik 12.5 p.o. daily. 10. Peace-Colace 1 tab b.i.d. 11. Levaquin 500 p.o. daily. PRESENTING COMPLAINT: Shortness of breath. HISTORY OF PRESENT COMPLAINT: Mr. Alfredo is a 74-year-old male who is known to have COPD, recently diagnosed with a right upper lobe squamous cell cancer. She sees Dr. Mai, came to the emergency room because of progressively worsening shortness of breath. On presentation, Mr. Alfredo was evaluated and was found to have a left lower lobe infiltrate. He was admitted for possible pneumonia. He did continue to improve during the hospital course. A CAT scan of the chest and abdomen did show multifocal pneumonia and some other findings in the abdomen. Please refer to the details of the report in the chart. Mr. Alfredo was also found to be urinary obstructed, so a Campbell catheter was inserted. Clinically Mr. Alfredo continued to feel better. This morning, he said his shortness of breath has significantly improved and he feels stronger. He is very adamant that he is going to be discharged. He said he has a lot of things to take care of at home and that if we do not discharge him, he was still going to sign himself against medical advice. Despite the persuasion to let him know that he still has a lot of pneumonia, he said he feels much better and that he would go. I think it is reasonable to send him home on antibiotics. A prescription done for him to go against medical advice and come back sicker than he has been. I have therefore written up a script for Levaquin and doxycycline as well as tamsulosin for his BPH and urinary retention. He was evaluated during the hospital course by Dr. Randall who recommended the tamsulosin. He also discussed with him the possibility of doing cystoscopy. However, the patient chose conservative medical management. Mr. Alfredo is going home with a Campbell catheter. He has been advised to follow up with Dr. Randall within one week to assess the need for the catheter to be removed or continuous need. Mr. Alfredo will also follow up with Dr. Mai as well as with his primary care doctor, Frances Bull. All the discharge instructions were discussed with him and with his at the bedside at the time of the encounter. Both of them voiced understanding. Time spent for discharge is 38 minutes. cc: Leonard Lim MD [facility]
== END 2019-08-30 10:23 | disposition home or self-care (01) | DRG 871 ==
LOC: ED 09:25 → EDIPHOLD 11:46 → 3N 19:52
PROVIDERS: ATTEND Internal Medicine

== ENCOUNTER 2019-10-07 09:52 | Inpatient (IN) ==
[2019-10-07 10:34] LABS: EOS# 0.09 X1000 (0.0-0.7); EOS% 5.4 % (0.0-10.0); HEMATOCRIT 32.1 % (42.0-52.0); HEMOGLOBIN 10.2 g/dL (14.0-18.0); LYMPH# 0.24 X1000 (1.2-3.4); LYMPH% 14.5 % (20.5-51.1); MCH 31.3 PG (27-31); MCHC 31.8 g/dL (33-37); MCV 98.5 FL (81-99); MONO# 0.23 X1000 (0.11-0.59); MONO% 13.9 % (1.7-9.3); MPV 10.1 FL (7.4-10.4); NEUT% 66.2 % (42.2-75.2); PLT 108 X1000 (130-400); RBC 3.26 XMIL (4.7-6.1); RDW 17.4 % (11.5-14.5); WBC 1.66 X1000 (4.8-10.8)
--- NOTE | 2019-10-07 10:35 | EKG Report ---
Test Performed on : 10/07/2019 10:04:01 AM Test Reason : weakness Blood Pressure : / mmHG Vent. Rate : 116 BPM Atrial Rate : 116 BPM P-R Int : 144 ms QRS Dur : 076 ms QT Int : 310 ms P-R-T Axes : 051 045 060 degrees QTc Int : 430 ms Sinus tachycardia. Otherwise normal ECG When compared with ECG of 22-JAN-2019 16:26, Nonspecific T wave abnormality no longer evident in Lateral leads Unconfirmed Result
[2019-10-07] MEDS ORDERED: VANCOMYCIN 1 GM/NS 1 GM/250 ML IVPB IV ONE ×2 (10:38→16:00)
[2019-10-07] MEDS ORDERED: SOLU-MEDROL IV ONE (10:38)
[2019-10-07] MEDS ORDERED: DUONEB (A & A) INH ONE (10:38)
[2019-10-07] MEDS ORDERED: MAXIPIME 1 GM in NS 50 ML IV ONE (10:38)
[2019-10-07] MEDS ORDERED: NS 1,000 ML IV ONE (10:38)
[2019-10-07 11:05] LABS: AGAP 10; ALB/GLOB RATIO 0.9; ALBUMIN 3.1 g/dL (3.5-5.0); ALKALINE PHOSPHATASE 66 U/L (32-122); BUN 7 mg/dL (8-22); CHLORIDE 98 mmol/L (98-107); COSMO 272; CREATININE 0.5 mg/dL (0.7-1.2); ESTIMATED GFR > 60; GLUCOSE 103 mg/dL (70-104); GOT 35 U/L (10-34); GPT 48 U/L (10-44); POTASSIUM 4.6 mmol/L (3.5-5.1); SODIUM 137 mmol/L (136-145); TCO2 29 mmol/L (25-35); TOTAL BILIRUBIN 0.39 mg/dL (0.20-1.00); TOTAL PROTEIN 6.7 g/dL (6.3-8.3)
[2019-10-07 11:20] LABS: ALLEN TEST NO; BE 1.6 mmoll (-3.0-3.0); BLOOD TYPE ARTERIAL; HCO3-(ACT) 25.8 mmoll (20.0-26.0); METHB 0.9 % (0.0-1.5); O2(CT) 19.5 mL/dL (15.0-23.0); PCO2(98.6) 42 mmHg (35-45); PO2(98.6) 50 mmHg (60-100); SAMPLE BLOOD; SAO2 90.2 % (95.0-100.0); pH(98.6) 7.41 (7.35-7.45)
[2019-10-07 11:22] LABS: MODALITY ROOM AIR
--- NOTE | 2019-10-07 11:44 | Diag Imaging Result Doc PS360 ---
EXAM: CHEST-1 VIEW 10/07/2019 HISTORY: lung cancer, fever TECHNIQUE: AP portable at 1135 COMMENT: Compared to 08/28/2019 the interstitial and alveolar opacities present in the left base have improved. The right lung is essentially unchanged. IMPRESSION: Improved pulmonary edema and/or pneumonia on the left. Electronically signed by Marlo Jay 10/07/2019 11:41 AM
--- NOTE | 2019-10-07 12:13 | PROVIDER DOCUMENTATION ---
This chart was entered by Altagracia Bhandari Scribe, acting as scribe for Art Colbert MD. HPI-General Adult - General Chief Complaint: Weakness Stated Complaint: LUNG CANCER Time Seen by Provider: 10/07/19 10:29 Source: patient Allergies/Adverse Reactions: Patient Allergies Allergy/AdvReac Type Severity Reaction Status Date / Time Penicillins Allergy RASH Verified 10/07/19 10:36 Home Medications: Home Medication List Medication Instructions Recorded Confirmed Last Taken Type Eszopiclone 1 mg PO QHS 08/27/19 10/07/19 10/05/19 History Hydrocodone/APAP 10 mg/325 mg 1 tab PO Q4-6H PRN PRN 08/27/19 10/07/19 10/07/19 History [[place]-10] Morphine E.r. [Ms Contin] 30 mg PO BID 08/27/19 10/07/19 10/07/19 History Umeclidinium/Vilanterol [Anoro 1 puff INH RTDAILY #1 inhaler 08/30/19 10/07/19 09/07/19 Rx Ellipta 62.5-25 Mcg INH] - History of Present Illness -Gen Adult Nature of Presenting Problems: Patient is a 74 y/o male presenting to the ED today c/o fatigue and SOB. Patient reports onset of symptoms today. Patient reports he is currently being treated for lung cancer with his last radiation treatment on 10/05 and his last chemotherapy treatment on 10/02. Patient reports some subjective fever with chills. Patient states his SOB has been worse than usual. Patient reports he was recently admitted with pneumonia. Patient denies N/V/D. Patient denies cough. Patient denies all other signs/symptoms. Location of Pain/Injury: reports: none Onset/Duration: reports: this morning Associated Symptoms: reports: fatigue, fever/chills, shortness of breath Similar Symptoms Previously?: No Recently seen or treated by another doctor?: Yes (radiation 10/05, chemotherapy 10/02) Review of Systems - Adult - REVIEW OF SYSTEMS - ADULT Constitutional: reports: chills, fever, fatique Eyes: reports: no symptoms reported Ears, Nose, Mouth & Throat: reports: no symptoms reported Cardiovascular: denies: chest pain Respiratory: reports: shortness of breath. denies: cough Gastrointestinal: denies: abdominal pain, diarrhea, nausea, vomiting Genitourinary: reports: no symptoms reported Musculoskeletal: reports: no symptoms reported Integumentary: reports: no symptoms reported Neurological: reports: no symptoms reported Psychiatric: reports: no symptoms reported Endocrine: reports: no symptoms reported Hematologic/Lymphatic: reports: no symptoms reported Allergic/Immunologic: reports: no symptoms reported All Other Systems: Reviewed and Negative Past History - Adult - PAST MEDICAL HISTORY-ADULT Review of Records: reports: Old Records Reviewed, Nursing Assessment Review, Medications Reviewed, Social history reviewed & non-contributory. Major Childhood Illnesses: reports: denies history Cardiovascular: reports: denies history Respiratory: reports: cancer (lung) Gastrointestinal: reports: denies history Obstetrical/Gynecological: reports: denies history Genitourinary: reports: denies history Musculoskeletal: reports: denies history Neurological: reports: denies history Psychiatric: reports: denies history Endocrine/Immune: reports: denies history Other Conditions: reports: cataract/glaucoma (left eye) - SOCIAL HISTORY Smoking: non-smoker Physical Exam-General - PHYSICAL EXAM-ADULT Initial Vital Signs Reviewed: Yes - CONSTITUTIONAL General Appearance: appears well, alert, no apparent distress - EYES Eyes: pink conjunctivae, other (left pupil dilated and cornea clouded) - HEAD, EARS, NOSE, MOUTH & THROAT HENMT: normocephalic/atraumatic, moist mucous membranes - NECK Neck: full range of motion, normal inspection - RESPIRATORY Respiratory: lungs clear, no respiratory distress, no accessory muscle use, wheezing (faint expiratory), increased rate - CARDIOVASCULAR Cardiovascular: no edema, tachycardia - GASTROINTESTINAL (ABDOMEN) Abdominal Exam: non tender, soft - LYMPHATIC Lymphatic: no adenopathy - MUSCULOSKELETAL Back Exam: normal inspection Extremity: normal range of motion, normal gait, normal inspection, pedal edema (2-3+ pitting) - SKIN Integumentary: normal color, normal turgor, warm/dry - NEUROLOGIC Neurologic: grossly normal, no motor/sensory deficits - PSYCHIATRIC Psych/Mental Status: normal mood/affect, normal thought content, normal thought process Progress - PLAN OF CARE/RESULTS Progress/Plan/Lab Results: Vital Signs - 8 hr 10/07/19 10:01 Temperature 97.7 F Pulse Rate 122 H Respiratory Rate 20 Blood Pressure 113/72 O2 Sat by Pulse Oximetry 91 L Laboratory Results - last 24 hr 10/07/19 10:12 WBC 1.66 L RBC 3.26 L Hgb 10.2 L Hct 32.1 L MCV 98.5 MCH 31.3 H MCHC 31.8 L RDW Std Deviation 17.4 H Plt Count 108 L MPV 10.1 Immature Gran % (Auto) 0.0 Neut % (Auto) 66.2 Lymph % (Auto) 14.5 L [place] % (Auto) 13.9 H Eos % (Auto) 5.4 Baso % (Auto) 0.0 Immature Gran # (Auto) 0.00 Neut # (Auto) 1.10 L Lymph # (Auto) 0.24 L [place] # (Auto) 0.23 Eos # (Auto) 0.09 Baso # (Auto) 0.00 Orders Category Date Time Status CBC WITH ELECTRONIC DIFF [HEME] Stat Lab 10/07/19 10:12 Completed COMPREHENSIVE METABOLIC PANEL [CHEM] Stat Lab 10/07/19 10:12 Received Flu Swab [INFLUENZA SCREEN A/B] Stat Lab 10/07/19 10:12 Received Generalized Adult Illness >60 Stat Oth 10/07/19 10:13 Ordered EKG [EKG] Stat Ther 10/07/19 10:13 Draft Result Diagrams: 10/07/19 10:12 10/07/19 10:12 - REASSESSMENT Reassessment #1 Time Reassessed: 12:10 Status: improving (GIven O2, duoneb, maxepime and vanco) - EKG 1 Time of EKG reading by physician:: 10:31 EKG Read and Signed by:: Art Colbert EKG Interpretation (*Must complete 3 of following elements*): Normal Rate: 116 Rhythm: Sinus tachycardia [place]: normal QRS: other (high voltage) MS Interval: normal ST Wave: normal Comments: no STEMI - XRAY 1 XRAY Study: Chest Impression: See EMR Report (EXAM: CHEST-1 VIEW 10/07/2019 HISTORY: lung cancer, fever TECHNIQUE: AP portable at 1135 COMMENT: Compared to 08/28/2019 the interstitial and alveolar opacities present in the left base have improved. The right lung is essentially unchanged. IMPRESSION: Improved pulmonary edema and/or pneumonia on the left. Electronically signed by Marlo Jay 10/07/2019 11:41 AM 10/07/19 1141 Interpreting Physician: Marlo Jay MD Dictated Date/Time: 10/07/19 1140 cc: Art Colbert MD; Frances Bull) - CONSULTS/PCP/HOSPITALIST Notification #1 *Consult/PCP/Hospitalist*: PANDA Linares Time Discussed: 12:11 Reason/Comments: Anthony Consult Disposition: Will see in ED, Admit Departure - Departure Date of Disposition Decision: 10/07/19 Time of Disposition Decision: 12:11 DIAGNOSIS: COPD exacerbation Left lower lobe pneumonia Qualifiers: Pneumonia type: due to unspecified organism Qualified Code(s): J18.1 - Lobar pneumonia, unspecified organism Lung malignancy Qualifiers: Laterality: right Lung location: lower lobe of lung Qualified Code(s): C34.31 - Malignant neoplasm of lower lobe, right bronchus or lung Neutropenia Qualifiers: Neutropenia type: secondary to cancer chemotherapy Qualified Code(s): D70.1 - Agranulocytosis secondary to cancer chemotherapy; T45.1X5A - Adverse effect of antineoplastic and immunosuppressive drugs, initial encounter Disposition: ADMITTED INPATIENT 09 Certified Medical Emergency: Emergent Condition: Fair Referrals and Follow-Ups: Frances Bull [Primary Care Provider] - - Critical Care Note This patient required my direct & personal management of CC.: No Attestation - Physician/ ZEB Attestation Patient care was provided by Advanced Practice Provider:: No The physician spent face to face time with patient:: Yes Advanced Practice Provider documentation review:: Supervising physician onsite and consulted in the evaluation and care of this patient. The physician did have a face to face encounter with the patient. This chart was documented by the indicated scribe, (Altagracia Bhandari Scribe) and accurately reflects the services I performed and decisions made by me, Art Colbert MD, as attested by the provider's signature.
[2019-10-07 12:42] LABS: INR 1.04; PROTIME 13.7 Seconds (11.0-16.0)
[2019-10-07 12:43] LABS: PTT 41.5 Seconds (22.3-41.8)
[2019-10-07 12:51] LABS: MAGNESIUM 2.2 mg/dL (1.5-2.7)
[2019-10-07] MEDS ORDERED: VANCOMYCIN IV PER PHARMACY MISC SCH (14:30)
[2019-10-07] MEDS ORDERED: DUONEB (A & A) INH SCH (15:00)
[2019-10-07 15:29] LABS: URINE SOURCE CLEAN CATCH
[2019-10-07] MEDS ORDERED: LASIX IV SCH (15:30)
[2019-10-07 15:33] LABS: BILIRUBIN URINE NEGATIVE (NEGATIVE); BLOOD URINE NEGATIVE (NEGATIVE); COLOR YELLOW; GLUCOSE URINE NEGATIVE (NEGATIVE); KETONE URINE NEGATIVE (NEGATIVE); LEUKOCYTES URINE NEGATIVE (NEGATIVE); NITRITE URINE NEGATIVE (NEGATIVE); PROTEIN URINE NEGATIVE (NEGATIVE); TURBIDITY URINE CLEAR (CLEAR); UROBILINOGEN URINE NORMAL (NORMAL)
[2019-10-07 15:35] LABS: UR EPITHELIAL CELLS <10 /HPF (<10); URINE BACTERIA NEGATIVE /HPF; URINE RBC <10 /HPF (<10); URINE WBC <10 /HPF (<10)
--- NOTE | 2019-10-07 15:35 | Diag Imaging Result Doc PS360 ---
CHEST-PORTABLE - 10/07/2019 INDICATION: Pneumonia COMPARISON: 10/07/2019 FINDINGS: Stable severe right lateral rib cage deformity. Stable interstitial opacities or infiltrates in the lung bases bilaterally. No new infiltrates. Stable cardiomegaly. No large pleural effusion. IMPRESSION: No change from prior. Electronically signed by León James 10/07/2019 3:33 PM
[2019-10-07] MEDS: NORCO-10 PO PRN ×2 (16:12→22:24)
[2019-10-07] MEDS: MERREM 1 GM in NS 50 ML IV SCH ×2 (16:13→23:00)
--- NOTE | 2019-10-07 16:23 | HISTORY AND PHYSICAL ---
PRIMARY CARE PHYSICIAN: Frances Bull MD ONCOLOGIST: Solitario Mai MD RADIOLOGIST: Dr. Womack CHIEF COMPLAINT: Shortness of breath. HISTORY OF PRESENT ILLNESS: Mr. Trent Alfredo is a 74-year-old male with past medical history of right lung cancer, on chemotherapy and radiation, recent pneumonia and COPD. The patient does present to the ER today with complaints of dyspnea, cough, fever with subsequent chills, diaphoresis and sinusitis. The patient states that he has been sick for approximately a day and a half after he received radiation treatment on Saturday. The patient was just recently in the hospital in August for pneumonia. The patient does deny any headache, vision change, neck pain, stiffness, excessive thirst, chest pain, palpitations, orthopnea, PND, hemoptysis, nausea, vomiting, melena, hematopoiesis, diarrhea, constipation, dysuria, hematuria, frequency, muscle pain, syncope, dizziness, vertigo, or any other pertinent symptoms at this time. REVIEW OF SYSTEMS: A 10 point review of systems has been obtained. All are negative except what is stated above in HPI. PAST MEDICAL HISTORY: 1. Recent pneumonia in August. 2. Recent urinary retention, seen by Dr. Randall in the hospital. 3. Right lung cancer, on chemotherapy sees Dr. Mai and radiation sees Dr. Womack. 4. Chronic obstructive pulmonary disease. PAST SURGICAL HISTORY: Right thigh surgery secondary to trauma as a child. SOCIAL HISTORY: Patient does live in [place]. He is . He is a smoker. He states he only occasionally smokes cigarettes, though does occasionally drink alcohol. He denies any illicit drug use. He does wear home O2 as needed 2 to 3 L and does use home nebulizers. The patient pharmacy is [facility]. FAMILY HISTORY: Mother with [place] at the age of 86, . Father with lung cancer. He has 2 sisters who have diabetes. ALLERGIES: Penicillin. MEDICATIONS: 1. Eszopiclone 1 mg p.o. at bedtime. 2. Morphine ER 30 mg p.o. b.i.d. 3. Hydrocodone APAP 10/325 mg 1 tablet p.o. q.4-6 hours p.r.n. 4. Anoro Ellipta 1 puff inhaled routine daily. PHYSICAL EXAMINATION: VITAL SIGNS: Temperature 97.7 degrees, heart rate 108, respiratory rate 22, blood pressure 113/72, O2 saturation 94% on room air. GENERAL: This is a 74-year-old male. He is lying in the ER stretcher. He is well nourished, well developed, in no acute distress. HEENT: Atraumatic, normocephalic. Pupils equal, round, reactive to light. Mucous membranes are moist. NECK: Supple. No lymphadenopathy. Trachea is midline. No JVD. CARDIOVASCULAR: Regular rate and rhythm. No murmurs, gallops, or rubs appreciated. RESPIRATORY: Rhonchi noted to the upper lung [place]. There is wheezing noted to the right lung field. Respirations are nonlabored. There is no accessory muscle usage. GASTROINTESTINAL: Abdomen is soft, nontender. It is mildly distended. Bowel sounds present x4. GENITOURINARY: There is no suprapubic tenderness noted. The patient is voiding without difficulty. NEUROLOGIC: Patient is awake, alert, oriented, able to follow all commands appropriately. MUSCULOSKELETAL: Full distal strength noted. No abnormalities. No deformities. EXTREMITIES: There is positive edema noted to the bilateral lower extremities. DP and PT pulses are present and palpable. SKIN: Warm, dry, and intact. No rashes or bruises. No diaphoresis. LABS AND DIAGNOSTICS: White blood cell count 1.66, hemoglobin 10.2, hematocrit 32.1, platelet count 108,000. PH 7.41, pCO2 42, PO2 is 50, bicarb is 25.8, base excess is 1.6, oxyhemoglobin is 87, carboxyhemoglobin is 2.70, O2 saturation is 98.2. Sodium is 137, potassium is 4.6, chloride is 98, carbon dioxide is 29, BUN 7, creatinine is 0.5, glucose is 103, magnesium is 2.2. ProBNP is 331. Chest x-ray shows improved pulmonary edema or pneumonia on the left lung. Influenza swab does show positive influenza B. ASSESSMENT AND PLAN: 1. Pneumonia of the left lung. We will admit this patient to the medical floor. We will place this patient on vancomycin and cefepime. The patient was already given dose in the ER. Also give the patient Lasix 40 mg IV daily. The patient does have lower extremity edema possible pulmonary edema on chest x-ray. We will also put order in to elevate lower extremities. The patient states he was on Lasix at home. He ran out of his prescription. The patient did receive echo last admission. I will not reorder this. I will provide the patient with supplemental O2. He did have some hypoxia on his ABGs. His O2 saturation is within normal range on oxygen. He does wear home O2. We have provided him with DuoNebs. We will repeat labs in the morning. 2. Influenza. I have started the patient on Tamiflu 75 mg p.o. b.i.d. I have placed him on isolation for droplet precautions. 3. History of lung mass receiving chemotherapy and radiation treatment. I have consulted Dr. Mai-we appreciate his recommendations. 4. History of urinary retention with bilateral lower extremity leg edema. I have started the patient on some Lasix 40 mg IV daily. I am going to also order a postvoid residual bladder scan for nursing to do and for nursing to elevate lower extremities. We may have to place a Campbell catheter. He was seen by Dr. Randall on last admission. 5. Chronic obstructive pulmonary disease. I have provided this patient with DuoNebs and supplemental O2. 6. Deep venous thrombosis prophylaxis. I have placed him with sequential compression devices. Dictated by PANDA Huang for Aminata Cruz MD cc: MD Frances Frye MD I performed a face to face encounter on the patient. I reviewed all labs and imaging on the patient. I agree with the H&P as dictated. [facility]
[2019-10-07] MEDS ORDERED: NS NEB INH SCH (19:00)
[2019-10-07] MEDS: NS 1,000 ML IV SCH (20:42)
[2019-10-07] MEDS: XOPENEX NEB INH SCH (21:00)
[2019-10-07] MEDS: MS CONTIN PO SCH (22:23)
[2019-10-07] MEDS: TAMIFLU PO SCH (22:23)
[2019-10-07] MEDS: MAXIPIME 1 GM in NS 50 ML IV SCH (22:25)
[2019-10-08] MEDS: MAXIPIME 1 GM in NS 50 ML IV SCH ×2 (00:45→10:53)
[2019-10-08] MEDS: XOPENEX NEB INH SCH ×2 (03:00→09:46)
[2019-10-08 03:56] LABS: ALLEN TEST YES; BE 3.4 mmoll (-3.0-3.0); BLOOD TYPE ARTERIAL; HCO3-(ACT) 27.5 mmoll (20.0-26.0); METHB 0.3 % (0.0-1.5); O2(CT) 10.6 mL/dL (15.0-23.0); O2HB 91.5 % (95.0-99.0); PCO2(98.6) 45 mmHg (35-45); PO2(98.6) 53 mmHg (60-100); SAMPLE BLOOD; SAO2 95.6 % (95.0-100.0); THB 8.2 g/dL (11.5-17.4); pH(98.6) 7.41 (7.35-7.45)
[2019-10-08 03:57] LABS: MODALITY ROOM AIR
[2019-10-08] MEDS: MERREM 1 GM in NS 50 ML IV SCH (06:33)
--- NOTE | 2019-10-08 08:01 | Diag Imaging Result Doc PS360 ---
EXAM: CHEST-PORTABLE INDICATION: pneumonia TECHNIQUE: One view COMPARISON: 10/07/2019 FINDINGS: Bilateral opacities that are predominantly interstitial at the lower lung zones are unchanged. No new consolidation is appreciated. Cardiac silhouette is stable. IMPRESSION: Stable chest. Electronically signed by Esau Mitchell 10/08/2019 7:59 AM
[2019-10-08 08:36] LABS: HEMATOCRIT 27.1 % (42.0-52.0); HEMOGLOBIN 8.4 g/dL (14.0-18.0); LYMPH# 0.13 X1000 (1.2-3.4); LYMPH% 8.3 % (20.5-51.1); MCH 30.4 PG (27-31); MCV 98.2 FL (81-99); MONO# 0.16 X1000 (0.11-0.59); MONO% 10.3 % (1.7-9.3); MPV 9.6 FL (7.4-10.4); NEUT# 1.27 X1000 (1.4-6.5); NEUT% 81.4 % (42.2-75.2); PLT 117 X1000 (130-400); RBC 2.76 XMIL (4.7-6.1); RDW 17.2 % (11.5-14.5); WBC 1.56 X1000 (4.8-10.8)
[2019-10-08 09:02] LABS: AGAP 8; ALB/GLOB RATIO 0.9; ALBUMIN 2.9 g/dL (3.5-5.0); ALKALINE PHOSPHATASE 63 U/L (32-122); BUN 7 mg/dL (8-22); CALCIUM 8.6 mg/dL (8.8-10.2); CHLORIDE 103 mmol/L (98-107); COSMO 277; CREATININE 0.4 mg/dL (0.7-1.2); ESTIMATED GFR > 60; GLUCOSE 131 mg/dL (70-104); GOT 33 U/L (10-34); GPT 46 U/L (10-44); POTASSIUM 4.2 mmol/L (3.5-5.1); SODIUM 139 mmol/L (136-145); TCO2 28 mmol/L (25-35); TOTAL PROTEIN 6.2 g/dL (6.3-8.3)
[2019-10-08] MEDS: MS CONTIN PO SCH (09:24)
[2019-10-08] MEDS: TAMIFLU PO SCH (09:24)
[2019-10-08] MEDS: NS 1,000 ML IV SCH (10:52)
[2019-10-08 11:44] VITALS: BP 116/63
--- NOTE | 2019-10-08 13:52 | INFECTIOUS DISEASE CONSULT REP ---
DATE: 10/08/2019 CONCLUSION: The patient has a bilateral pneumonia. He also has influenza B and he also has neutropenia and lung cancer. RECOMMENDATIONS: I discussed with the patient treatment options. I told him it would be best if he stayed in the hospital and got antibiotics through his vein, but he refused and he said he wants to go home and he wants antibiotics by mouth. Specifically, I have sent electronically prescriptions for Omnicef 300 mg p.o. every 12 hours for 1 week, ciprofloxacin 500 mg p.o. every 12 hours for 1 week and Tamiflu 75 mg p.o. every 12 hours for 4 days. He has received 1 day of treatment in the hospital already. Some of the side effects of the antibiotics, including rash, diarrhea, seizures, and tendon rupture have been explained to the patient who agrees with treatment. I have requested that the patient see me in my office in 1 week at which time he will be examined and we will check a CBC, BMP and chest x-ray. The patient's prescriptions for ciprofloxacin and Omnicef I wrote for a week's worth of antibiotic with 1 refill on both antibiotics. DISCUSSION: The patient tells me approximately a week ago he started feeling weak and having dyspnea and fever. He was admitted to the hospital. He has been found to have bilateral pulmonary infiltrates on chest x-ray. The patient was found to be positive for screening for influenza B. Urinalysis showed no white cells or bacteria. IgG is 758, IgA is 103. CBC shows a white count of 1560 with an absolute neutrophil count of 1010. Hemoglobin is 8.4, and platelet count is a 117,000. Blood gases show a pH of 7.41, a PO2 of 53, and a pCO2 of 45. Creatinine is 0.4, GFR is greater than 60. Liver function studies are normal except for an ALT of 46. PAST MEDICAL HISTORY/REVIEW OF SYSTEMS: Eyes and ears: His vision and hearing are good. Neck: No stiffness. Respiratory: See present illness. Cardiovascular: No chest pain or palpitations. GI: No nausea, vomiting, or diarrhea. : No dysuria or flank pain. Bones, joints, muscles: No joint swelling or muscle aching. Neurologic: No headaches. No loss of motor or sensory function. Integument: No rashes. PREVIOUS HOSPITALIZATIONS AND OPERATIONS: He has had a hernia repair. MEDICAL DISEASES: Positive for lung cancer. Negative for hypertension and myocardial infarction. Chronic obstructive pulmonary disease secondary to cigarette smoking. INFECTIOUS DISEASE HISTORY: Positive for pneumonia. Negative for UTI. FAMILY HISTORY: Positive for cancer and myocardial infarction. [place]IAL HISTORY[place] . He does not have any pets. He is allergic to penicillin. It causes a rash. However, the patient has had Keflex and he has tolerated it well. Also while in the hospital, he has had cefepime and he tolerated that well so he should tolerate Omnicef well also. The patient is retired. 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 He smokes cigarettes and he drinks alcoholic beverages but he does not use illicit drugs. HOME MEDICATIONS: Eszopiclone, hydrocodone, morphine, Tamiflu and Anoro Ellipta. PHYSICAL EXAMINATION: Vital Signs: Temperature is 98 degrees, pulse 97, respirations 23, blood pressure is 116/63. Patient weighs 175 pounds. General: This is an obese, elderly male. He looks to be chronically ill. Head/eyes/ears/nose/throat: He can see near objects. He can hear my spoken words. He has very poor oral hygiene. He is missing teeth and he has cavities and necrosis in other teeth. He does not have any white patches in his mouth. Neck: No meningismus. Lungs: Clear to auscultation. Cardiovascular: Heart rate is regular. Abdomen: Soft and nontender. Neurologic: The patient is alert. He can move his extremities. There is no tremor. His sensation is intact to touch. His memory as regarding his medical history is slightly decreased. Integument: No rash. Thank you for the consult. cc: Dwight Hopkins MD
[2019-10-08] MEDS ORDERED: VANCOMYCIN 1,750 MG in NS 250 ML IV SCH (16:00)
--- NOTE | 2019-10-09 17:43 | DISCHARGE SUMMARY ---
ADMISSION DATE: 10/07/2019 DISCHARGE DATE: 10/08/2019 FINAL DISCHARGE DIAGNOSES: 1. Community-acquired pneumonia. 2. Lung cancer status post chemotherapy and radiation. 3. Chronic obstructive pulmonary disease. 4. Benign prostatic hypertrophy. 5. Tobacco dependence. 6. Influenza B CONSULTATIONS: 1. ID consultation with Dr. Hopkins. HOSPITAL COURSE: Mr. Alfredo is a 74-year-old male with a history of lung cancer on chemo and radiation, who presented to the ER with a chief complaint of shortness of breath. On admission, a chest x-ray was done that revealed pneumonia, also. The patient stated that he did not feel well. The patient was admitted to the hospitalist service. Blood cultures were obtained and a flu swab was done as well. The patient was noted to be positive for influenza B and started on Tamiflu in addition to broad-spectrum antibiotics. The patient was seen by Dr. Hopkins as well. After 1 night in the hospital, the patient decided that he no longer wanted to be hospitalized and wanted to be discharged home. The risks of being discharged home without the complete treatment with IV therapy were discussed with the patient, and he stated that he was willing to take the risk of going home on oral antibiotics instead of IV antibiotics given his multiple comorbidities. This was also discussed with his at the bedside and they were both in agreement with being discharged home. The patient was transitioned to ciprofloxacin and Omnicef as well as Tamiflu. DISCHARGE MEDICATIONS: 1. Omnicef 300 mg oral every 12 hours. 2. Ciprofloxacin 500 mg oral every 12 hours. 3. MS Contin 30 mg oral twice a day. 4. Tamiflu 75 mg oral q.12 hours x5 days. 5. Ellipta 1 puff inhaled daily. 6. [place] 10 one tab oral every 6 hours p.r.n. for pain. DISCHARGE DIET: Regular diet. FOLLOWUP INSTRUCTIONS: The patient will need to follow up with Dr. Solitario Mai as scheduled by his clinic. cc: MD CHIDI Frye
== END 2019-10-08 14:39 | disposition home health service (06) | DRG 871 ==
LOC: ED 09:52 → EDIPHOLD 14:50 → 3N 19:37
PROVIDERS: ATTEND Internal Medicine